=== PATIENT | female | born 2000 | race Two or more races ===

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

== ENCOUNTER 2021-12-13 11:07 | Emergency (ER) | payer BC ==
[2021-12-13] MEDS ORDERED: Dexameth. Sod Phosp. 10 MG/ML (CHEMO USE ONLY) ONE (11:21)
== END 2021-12-13 11:56 | disposition home or self-care (01) ==
LOC: ERS 11:07
DX: J02.0 Streptococcal pharyngitis (principal); I10 Essential (primary) hypertension; E66.9 Obesity, unspecified; Z79.899 Other long term (current) drug therapy
CPT/HCPCS: 87081; 87430; 99283; J1100